=== PATIENT | male | born 1935 | race Caucasian/White ===

== ENCOUNTER → 2017-01-03 | Outpatient (CLI) | payer MEDICARE, OTHER | END | disposition home or self-care (01) | LOC: CDC 10:09 | DX: Z01.810 Encounter for preprocedural cardiovascular examination (principal); D49.4 Neoplasm of unspecified behavior of bladder; R00.1 Bradycardia, unspecified; I44.0 Atrioventricular block, first degree; I44.4 Left anterior fascicular block | CPT/HCPCS: 93000 ==